=== PATIENT | male | born 1950 | race Caucasian/White ===

== ENCOUNTER 2024-02-25 08:14 | Day surgery (SDC) | payer MEDICARE, OTHER, SELFPAY ==
--- OUTSIDE RECORDS SUMMARY | 2024-02-25 08:19 | XMS_ITS | Clinical Summary ---
Author Organization [facility] [employer] [facility] Address [place], [place] [address] Care Team Providers Care Home Office Claims Examiner Name Role Phone Alec Membreno MD Primary Care Provider [phone]- [phone] Allergies No known active allergies Medications Medication Sig Dispensed Refills Start Date End Date Status multivitamin (DAILY MULTI-VITAMIN) tablet Take 1 tablet by mouth once daily. 0 01/23/2012 Active rosuvastatin (CRESTOR) 5 mg tabletIndications:Hy perlipidemia, unspecified hyperlipidemia type Take 1 Tablet (5 mg) by mouth at bedtime. 90 Tablet 3 01/04/2024 Active cycloSPORINE (Restasis) 0.05 % ophthalmic emulsion 60 vials of 0.4ml 2/day Active RESTASIS 0.05 % ophthalmic emulsion Place 0.05 Drops into both eyes 2 times daily. 12 02/12/2019 02/21/2024 Discontinued (*Med complete/Reg imen complete/Lev el of care change) Active Problems Problem Noted Date Diagnosed Date White coat syndrome without diagnosis of hyperte nsion 02/21/2024 Overview (02/21/2024): Taking blood pressure at home regularly. Ranging 100s-120s systolic normally. Hyperlipidemia 09/01/2021 Adenomatous colon polyp 07/13/2017 Overview (02/09/2023): Colonoscopy 06/2017 polyp, repeat in 5 years Colonoscopy 01/2023 TA, SSA, repeat in 5 years Right knee pain 12/31/2013 Overview (06/26/2014): Lateral knee pain with running since approximately 2010. Dec 2013: MRI negative. June 2014: Video Gait Analysis at [facility] Physical therapy. Sleep apnea 03/06/2013 Encounters Date Type Department Care Team Description 02/22/2024 9:46 AM CDT - 02/22/2024 11:59 PM CDT Hospital Encounter [facility] Medical Imaging [address] [place] [address] Geraldo Magaña MD Elevated prostate specific antigen (PSA) 02/21/2024 10:25 AM CDT Preop Visit [facility] [address] [place] [address] Geraldo Purvis MD Preoperative Exam (02/25/24) 02/21/2024 Travel 02/18/2024 Travel 02/12/2024 Telephone [facility] [address] [place] [address] Sergio Mcgregor MD Procedure 02/11/2024 4:45 PM CDT Office Visit [address] [address] Sergio Mcgregor MD Consult (Mass of right buttock referred by Dr. Membreno) 02/11/2024 Travel 02/06/2024 Travel 02/04/2024 Transcribe Orders [facility] Medical Imaging [address] [place] [id number] Geraldo Magaña MD 01/31/2024 10:15 AM CDT Ancillary Procedure [facility] [address] [place] [address] 01/31/2024 Travel 01/29/2024 Travel 01/04/2024 10:30 AM CDT Ancillary Procedure [address] [address] 01/04/2024 9:15 AM CDT Office Visit [address] [address] Alec Membreno MD Medicare ANNUAL (subsequent) Visit (73 yr old male) 01/04/2024 Travel 01/01/2024 Travel from Last 3 Months Immunizations Name Administration Dates Next Due COVID-19 vaccine (Moderna 10 0mcg/0.5mL) PF, MDV 02/18/2021,07/22/2020,06/24/2020 Pneumococcal Conj 20-valent (Prevnar 20) 022 Pneumococcal Poly,23-Valent (Pneumovax) 08/07/19 21 Td (Age >=7 Years) 07/27/2004,02/24/1995 Td, Preservative Free (age >= 7 Years) Tdap 09/06/2010 Zoster (Shingrix-RZV, recombinant) 02/28/2021, Zoster (Zostavax-ZVL, live) 10/14/2012 Zoster, Unspecified Formulation 11/17/2020 Family History Medical History Relation Name Comments Hodgkin's lymphoma Mother Other Sister meningioma Cancer-colon No Family History Cancer-prostate No Family History Heart Disease No Family History Relation Name Status Comments Mother Sister Social History Tobacco Use Types Packs/Day Years Used Date Smoking Tobacco: Never Smokeless Tobacco: Never Tobacco Cessation:Counseling Given: Yes Alcohol Use Standard Drinks/Week Comments Yes 0 (1 standard drink = 0.6 oz pur e alcohol) 3-4 drinks weekly PHQ-2 Answer Date Recorded PHQ-2 TOTAL SCORE 0 01/04/2024 Social Connections Answer Date Recorded Do you often feel lonely or isolated from those around you? 0 01/04/2024 Financial Resource Strain Answer Date R ecorded Difficulty of Paying Living Expenses 3 01/04/2024 Difficulty of Paying Living Expenses Not on file 01/04/2024 Food Insecurity Answer Date Recorded Do you worry your food will run out before you are able to buy more? 1 01/04/2024 Transportation Needs Answer Date Record ed Does lack of transportation keep you from medica l appointments? 1 01/04/2024 Does lack of transportation keep you from work, meetings or getting things that you need? 1 01/04/2024 Housing Stability Answer Date Recorded What is your housing situation today? 1 01/04/2024 Sex and Gender Information Value Date Recorded Sex Assigned at Not on file Gender Identity Not on file Sexual Orientation Not on file Travel History Travel Start Travel End [place] 01/23/2024 01/28/2024 Obstetrics History Last Filed Vital Signs Vital Sign Reading Time Taken Comments Blood Pressure 143/70 02/21/2024 10:29 AM CDT Pulse 72 02/21/2024 10:29 AM CDT Temperature 36.6 ??C (97.8 ??F) 03/11/2021 3:49 PM CS T Respiratory Rate 12 02/08/2023 11:10 AM CDT Oxygen Saturation 99% 02/21/2024 10:29 AM CDT Inhaled Oxygen Concentration - - Weight 77.2 kg (170 lb 4.8 oz) 02/21/2024 10:29 AM CDT Height 174 cm (5' 8.5) 02/21/2024 10:29 AM CDT Body Mass Index 25.51 02/21/2024 10:29 AM CDT Plan of Treatment Health Maintenance Due Date Last Done Comments COVID-19 vaccine series ( season) 2023 09/24/2023, 02/06/2023, 08/14/2022, Additional history exists Influenza for age 65+ 07/21/2024 Postpo kim from 12/23/2023 (Patient discretion) Depression screening for age 12+ 01/03/2025 01/04/2024, 01/04/2024, 01/02/2023, Additional history exists Medicare Wellness for age 65+ 01/04/2025 01/04/2024, 01/02/2023, 09/01/2021, Additional history exists BMI (ht and wt on same day) for age 18+ 02/20/2025 02/21/2024, 01/04/2024, 01/02/2023, Additional history exists Colonoscopy through age 75 02/09/202802/08, 02/08/2023, 02/08/2023, Additional history exists Lipids for age 45-75 01/03/2029 01/04/2024, 01/02/2023, 09/01/2021, Additional history exists Tetanus booster 11/02/2030 11/02/2020, 08/21, 07/27/2004, Additional history exists Tdap Completed 09/06/2010 Hepatitis C screening for age 18-79 Completed 08/06/2020 Zoster (shingles) series for age 50+ Completed 02/28/2021, 11/17/2020, 10/14/2012 Pneumococcal series for age 65+ Completed 09/01/2021, 08/06/2020 Procedures Procedure Name Priority Date/Time Associated Diagnosis Comments HEMOGLOBIN Routine 02/21/2024 11:02 AM CDT Pre-op evaluation Mass of buttock MR PELVIS WWO Routine 01/31/2024 11:25 AM CDT Mass of buttock US PELVIS SOFT TISSUE Routine 01/04/2024 10:47 AM CDT Mass of buttock BASIC METABOLIC PANEL Routine 01/04/2024 10:43 AM CDT Elevated blood pressure reading without diagnosis of hypertension PSA TOTAL SCREEN Routine 01/04/2024 10:4 3 AM CDT Screening for prostate cancer LIPID PANEL Routine 01/04/2024 10:43 AM CDT Hyperlipidemia, unspecified hyperlipidemia type COLONOSCOPY SCREENING Routine 02/08/2023 9:52 AM CDT History of colon polyps ANTI HCV Routine 08/06/2020 8:50 AM CDT Need for hepatitis C screening test from Last 3 Months or Most Recently Relevant to Health Maintenance Results * (ABNORMAL) HEMOGLOBIN (02/21/2024 11:02 AM CDT) HEMOGLOBIN 17.6(H) 13.2 - 17.1 g/dL [facility] Blood BLOOD SPECIMEN / Unknown 02/21/2024 11:02 AM CDT 02/21/2024 11:03 AM CDT Geraldo Purvis MD HEMATOL OGY [facility] [address] [place] [address], [facility] [address] [place] [address] * MR PELVIS WWO (01/31/2024 11:25 AM CDT) Anatomical Region Laterality Modality Pelvis Magnetic Resonan ce 02/05/2024 10:0 9 AM CDT Impressions 02/05/2024 10:09 AM CDT 1. Nonspecific subcutaneous mass in the right gluteal region consistent with a soft tissue neoplasm. Findings consistent with a nonaggressive mass given the longstanding history. 2. 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 Dictated by Vik Oreilly MD @ 02/05/2024 10:09:09 AM (Electronically Signed) Narrative 02/05/2024 10:09 AM CDT For Patients: ??As a result of the Cures Act, medical imaging exams and procedure reports are released immediately into your electronic medical record. ??You may view this report before your referring provider. ??If you have questions, please contact your health care provider. EXAM: MRI OF THE PELVIS, WITHOUT WITH IV CONTRAST CLINICAL INDICATION: Longstanding right buttock mass. COMPARISON PLAIN FILMS: None. COMPARISON CROSS-SECTIONAL IMAGING STUDIES: 01/04/2024 ultrasound. TECHNICAL: Axial, sagittal and coronal T1 and STIR images of the pelvis centered in the right hip precontrast. Postcontrast T1 weighted imaging with fat saturation. Contrast: Clariscan, 14 mL IV. FINDINGS: OSSEOUS STRUCTURES: No fracture, bone marrow contusion, stress change or marrow replacement process. ??No periosteal edema/reaction. SOFT TISSUES: Ovoid mass in the superficial subcutaneous tissues of the right gluteal region posteriorly and laterally measures 5.0 x 4.9 x 3.5 cm in size. No abutment of the adjacent gluteus ramirez muscle fascia. The mass demonstrates heterogeneous increased and intermediate T2 signal with intermediate and decreased T1 signal. Small amount of peripheral enhancement. Findings consistent with a soft tissue neoplasm. Differential considerations include a fibrous or myxoid neoplasm. Given the longstanding history, a more worrisome neoplasm including sarcoma is considered unlikely. MYOTENDINOUS STRUCTURES: Elliptical mass in the proximal sartorius muscle at the level of the femoral head measures 2.8 x 1.5 x 1.2 cm in size. The mass demonstrates increased T2 signal, decreased T1 signal with diffuse internal enhancement. There are small fatty tails at the proximal and distal margin of the lesion. The overall imaging characteristics are consistent with a benign peripheral nerve sheath tumor. Myotendinous junctions are maintained. ??No tendon tear. JOINTS: No hip joint effusion or subchondral changes. No labral tear or paralabral cyst. Procedure Note Vik Oreilly MD - 02/05/2024 For Patients: As a result of the Cures Act, medical imagingexams and procedure reports are released immediately into your electronicmedical record. You may view this report before your referring provider.If you have questions, please contact your health care provider. EXAM: MRI OF THE PELVIS, WITHOUT WITH IV CONTRAST CLINICAL INDICATION: Longstanding right buttock mass. COMPARISON PLAIN FILMS: None. COMPARISON CROSS-SECTIONAL IMAGING STUDIES: 01/04/2024 ultrasound. TECHNICAL: Axial, sagittal and coronal T1 and STIR images of the pelvis centered inthe right hip precontrast. Postcontrast T1 weighted imaging with fatsaturation. Contrast: Clariscan, 14 mL IV. FINDINGS: OSSEOUS STRUCTURES: No fracture, bone marrow contusion, stress change or marrow replacementprocess. No periosteal edema/reaction. SOFT TISSUES: Ovoid mass in the superficial subcutaneous tissues of the right glutealregion posteriorly and laterally measures 5.0 x 4.9 x 3.5 cm in size. Noabutment of the adjacent gluteus ramirez muscle fascia. The massdemonstrates heterogeneous increased and intermediate T2 signal withintermediate and decreased T1 signal. Small amount of peripheralenhancement. Findings consistent with a soft tissue neoplasm. Differentialconsiderations include a fibrous or myxoid neoplasm. Given thelongstanding history, a more worrisome neoplasm including sarcoma isconsidered unlikely. MYOTENDINOUS STRUCTURES: Elliptical mass in the proximal sartorius muscle at the level of thefemoral head measures 2.8 x 1.5 x 1.2 cm in size. The mass demonstratesincreased T2 signal, decreased T1 signal with diffuse internalenhancement. There are small fatty tails at the proximal and distal marginof the lesion. The overall imaging characteristics are consistent with abenign peripheral nerve sheath tumor. Myotendinous junctions aremaintained. No tendon tear. JOINTS: No hip joint effusion or subchondral changes. No labral tear or paralabralcyst. IMPRESSION: 1. Nonspecific subcutaneous mass in the right gluteal region consistentwith a soft tissue neoplasm. Findings consistent with a nonaggressive massgiven the longstanding history. 2. 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 Dictated by Vik Oreilly MD @ 02/05/2024 10:09:09 AM (Electronically Signed) Alec Membreno MD MR * US PELVIS SOFT TISSUE (01/04/2024 10:47 AM CDT) Anatomical Region Laterality Modality Pelvis Ultrasound 01/04/2024 3:01 PM CDT Narrative 01/04/2024 3:01 PM CDT For Patients: ??As a result of the Cures Act, medical imaging exams and procedure reports are released immediately into your electronic medical record. ??You may view this report before your referring provider. ??If you have questions, please contact your health care provider. Indication: Buttock mass Technique: Grayscale and color Doppler ultrasound of the right buttock subcutaneous tissues performed in the area of concern. Comparison: None Findings: There is a circumscribed heterogeneous solid mass measuring 5.1 x 5.3 x 2.9 cm. No excess internal vascularity. No drainable fluid collection. Impression: Indeterminate solid heterogeneous mass within the right buttock soft tissues measuring 5.1 x 5.3 x 2.9 cm. MRI recommended for further evaluation. Dictated by Quang Hollingsworth MD @ 01/04/2024 3:01:01 PM (Electronically Signed) Procedure Note Quang Hollingsworth MD - 01/04/2024 For Patients: As a result of the Cures Act, medical imagingexams and procedure reports are released immediately into your electronicmedical record. You may view this report before your referring provider.If you have questions, please contact your health care provider. Indication: Buttock mass Technique: Grayscale and color Doppler ultrasound of the right buttock subcutaneoustissues performed in the area of concern. Comparison: None Findings: There is a circumscribed heterogeneous solid mass measuring 5.1 x 5.3 x2.9 cm. No excess internal vascularity. No drainable fluid collection. Impression: Indeterminate solid heterogeneous mass within the right buttock softtissues measuring 5.1 x 5.3 x 2.9 cm. MRI recommended for furtherevaluation. Dictated by Quang Hollingsworth MD @ 01/04/2024 3:01:01 PM (Electronically Signed) Alec Membreno MD US * LIPID PANEL (01/04/2024 10:43 AM CDT) CHOLESTEROL,TOTAL 143 100 - 199 mg/dL 01/04/2024 6:16 PM CDT [facility] Comment: Cholesterol, Total Reference Ranges Desirable <200 mg/dL Borderline 200-239 mg/dL High >=240 mg/dL TRIGLYCERIDES 57 <150 mg/dL 01/04/2024 6:16 PM CDT [facility] HDL CHOLESTEROL 56 >40 mg/dL 6:16 PM CDT [facility] NON-HDL CHOLESTEROL 87 <145 mg/dl 01/04/2024 6:16 PM CDT [facility] CHOL/HDL RATIO 2.55 <4.50 01/04/2024 6:16 PM CDT [facility] LDL CHOLESTEROL 76 <=130 mg/dL 01/04/2024 6:16 PM CDT [facility] VLDL CHOLESTEROL 11 <=30 mg/dL 01/04/2024 6:16 PM CDT [facility] PROVIDER ORDERED STATUS RANDOM 01/04/2024 6:16 PM CDT [facility] Blood BLOOD SPECIMEN / Unknown Venipuncture / Unknown 01/04/2024 10:43 AM CDT 01/04/2024 10:44 AM CDT Alec Membreno MD [facility] [address] [place] [address], [place] * (ABNORMAL) BASIC METABOLIC PANEL (01/04/2024 10:43 AM CDT) SODIUM 138 136 - 145 mmol/L 01/04/2024 6:16 PM T [facility] POTASSIUM 4.2 3.5 - 5.1 mmol/L 01/04/2024 6:16 PM CDT [facility] CHLORIDE 103 98 - 107 mmol/L 01/04/2024 6:16 PM T [facility] CO2,TOTAL 26 22 - 29 mmol/L 01/04/2024 6:16 PM T [facility] ANION GAP 9 5 - 18 01/04/2024 6:16 PM T [facility] GLUCOSE 93 70 - 99 mg/dL 01/04/2024 6:16 PM T [facility] CALCIUM 9.1 8.8 - 10.2 mg/dL 01/04/2024 6:16 PM T [facility] BUN 20 8 - 23 mg/dL 01/04/2024 6:16 PM T [facility] CREATININE 1.19 0.70 - 1.20 mg/dL 01/04/2024 6:16 PM T [facility] BUN/CREAT RATIO 17 10 - 20 6:16 PM T [facility] eGFR 65(L) >90 mL/min/1.7 3m2 01/04/2024 6:16 PM T [facility] Comment:As of 2021, eG FR is calculated by the CKD-EPI creatinine equation without race adjustment. ??eGFR can be influenced by muscle mass, exercise, and diet. ??The reported eGFR is an estimation only and is only applicable if the renal function is stable. Blood BLOOD SPECIMEN / Unknown Venipuncture / Unknown 01/04/2024 10:43 AM CDT 01/04/2024 10:44 AM CDT Alec Membreno MD CHEMISTRY [facility] [address] [place] [address], [place] * (ABNORMAL) PSA TOTAL SCREEN (01/04/2024 10:43 AM CDT) PSA TOTAL (SCREEN) 4.48(H) <4.00 ng/mL 01/04/2024 6:16 PM CDT [facility] Blood BLOOD SPECIMEN / Unknown Venipuncture / Unknown 01/04/2024 10:43 AM CDT 01/04/2024 10:44 AM CDT Narrative [facility] - 01/04/2024 6:16 PM CDT The test method changed on 10/17/2022. If this test has been used for serial monitoring, rebaselining is recommended. Rebaselining consists of 2 measurements, collected 3-6 weeks apart. The Carmela Elecsys total PSA assay is an electrochemiluminescence immunoassay ECLIA performed on the Carmela Leander e immunoassay analyzers. Values obtained with different assay methods may be different and cannot be used interchangeably. Alec Membreno MD LABORATORY [facility] [address] [place] [address], [place] * COLONOSCOPY (02/08/2023 9:53 AM CDT) 02/08/2023 9:53 AM CDT Narrative Transcriptions Charli Jaime MD - 02/08/2023 10:58 AM CDT Patient Name: Don Gagnon Procedure Date: 02/08/2023 Gender: Male Date of : 1950 Admit Type: Outpatient Procedure: Colonoscopy Proceduralist: Charli Jaime MD , Holly Hunt (Nurse), Joann López (Nurse) Referring MD: Alec Membreno Indications/Pre-Op Diagnosis: High risk colon cancer surveillance:Personal history of sessile serrated colon polyp(less than 10 mm in size) with no dysplasia, Last colonoscopy: June 2017 Medications: Fentanyl 100 micrograms IV, Midazolam 4 mgIV, The level of sedation administered wasmoderate Procedure Description: The patient had risks, benefits and alternatives explained to andgave informed consent. The patient had a stable cardiopulmonary status and judged an adequate candidate for conscious sedation. The PCF-H190L [id number] was passed through the anus and advanced to the cecum, identified by appendiceal orifice and ileocecal valve. The colonoscopy was performed without difficulty. The patient toleratedthe procedure well. The quality of the bowel preparation was good. The ileocecal valve, appendiceal orifice, and rectum were photographed. Complications: No immediate complications. Estimated Blood Loss & Specimen: Estimated blood loss: none. Specimen collected - Yes and sent to Laboratory Findings: The perianal and digital rectal examinations were normal. Three sessile polyps were found in the ascending colon. The polypswere 3 mm in size. These polyps were removed with a cold biopsy forceps. Resection and retrieval were complete. The exam was otherwise without abnormality. Impressions/Post-Op Diagnosis: - Three 3 mm polyps in the ascending colon, removed with a coldbiopsy forceps. Resected and retrieved. - The examination was otherwise normal. Recommendation: - Patient has a contact number available for emergencies. The signsand symptoms of potential delayed complications were discussed with the patient. Return to normal activities tomorrow. Written discharge instructions were provided to the patient. - Resume previous diet. - Continue present medications. - Await pathology results. - Repeat colonoscopy is recommended. The colonoscopy date will be determined after pathology results from today's exam become available for review. Moderate Sedation: A time out was performed before the procedure. Moderate (conscious) sedation was administered by the endoscopy nurse and supervised bythe endoscopist. The following parameters were monitored: oxygensaturation, heart rate, blood pressure, EKG, CO2, respiratory rate, adequacy of pulmonary ventilation and reponse to care. Please refer to the patient's medical record flowsheets and nursing notes for moderate sedation details. Total physician intraservice time was 17 minutes. Charli Jaime MD 02/08/2023 10:58:14 AM This report has been signed electronically. Note Initiated On: 02/08/2023 9:53 AM Procedure Code(s): --- Professional --- 58299, Colonoscopy, flexible; with biopsy, single or multiple Diagnosis Code(s): --- Professional --- Z86.010, Personal history of colonicpolyps D12.2, Benign neoplasm of ascending colon CPT copyright 2021 [employer]. All rights reserved. The codes documented in this report are preliminary and upon burrer hand reviewmay be revised to meet current compliance requirements. Scope In: 10:35:12 AM Scope Withdrawal Time 0 hours 12 minutes 5 seconds Scope Out: 10:50:34 AM Charli Jaime MD PROCEDURE ORD * ANTI HCV (08/06/2020 8:50 AM CDT) HEPATITIS C ANTIBODY Non-React tatiana Non-React tatiana 08/06/2020 3:51 PM CDT [facility] Comment:Antibodies to HCV no t detected; does not exclude the possibility of exposure to HCV. Blood BLOOD SPECIMEN / Unknown Venipuncture / Unknown 08/06/2020 8:50 AM CDT 08/06/2020 8:52 AM CDT Alec Membreno MD SEND OUTS [facility] 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
[2024-02-25 08:28] VITALS: BP 130/66; PULSE 54; RESP 16; TEMP 36.6; O2SAT 100; BMI 25.9
[2024-02-25] MEDS: SODIUM CHLORIDE 0.9 % (FLUSH) 10 ML SYRINGE IVF (08:28)
--- NOTE | 2024-02-25 09:27 | PM.GSPRC ---
Operative Note Date of procedure: 02/25/24 Pre-op diagnosis: 1. Enlarging Right buttocks mass. Post-op diagnosis: Same Type of Procedure: 1. Excision of right buttocks mass with complex incisional closure. Indications: 73-year-old male was seen in clinic for evaluation of a right buttocks mass that was initially noticed 40 years ago. The mass has been increasing in size. Patient noticed pain in the mass that was worse after prolonged driving or sitting. The pain was radiating to the posterior thigh. Patient had lower extremity and pelvic MRI that showed 5 x 4.9 cm posterior and lateral Right buttocks mass that was above the muscle fascia. This was well circumscribed but mixed echogenicity. on clinical exam in the right lateral buttocks patient had a well-circumscribed mobile larger than a golf ball sized mass that was firmly attached to the dermis in the center of the mass. Given clinical picture and patient's physical exam, excision of this mass in the operating room was recommended. Procedure was discussed in detail. The risks associated procedure including infection, bleeding, mass recurrence, and seroma were all discussed with the patient, and he agreed to proceed. Procedure Description: After discussing the risks and benefits of the procedure, the patient signed informed consent.? The operative site was marked and the patient was brought to the operating room and placed on the operating table in the lateral decubitus position.? Care was taken to pad the patient's pressure points.?? The patient was then sedated by anesthesia.?? The operative site was then prepped and draped in the usual sterile fashion.? A time-out was then performed. Local anesthetic was injected at the surgical site. An elliptical skin incision was marked with the marking pen. A slightly oblique elliptical skin incision was made with a scalpel excising portion of the skin that was attached to the mass. Dermis and subcutaneous fat were divided with cautery until the mass was mobilized off muscle fascia. With there was 1 area in the superior third of the incision where the mass had slightly darkened fat an was attached to the muscle fascia firmer than any other location. This area was marked with a PDS stitch. The mass was then excised and marked with a single stitch superior and double lateral. The ellipse of skin was measuring 11 x 3 cm but the mass itself measured 5.5 x 5 cm. Hemostasis was achieved with cautery. The mass was sent to pathology. Lateral and medial skin flaps were developed with cautery to achieve tension-free closure. The incision was then closed in layers with interrupted 2-0 in 3-0 Vicryl sutures. The skin was closed with a running 4-0 Monocryl stitch. The length of the incision was 13 cm. Steri-Strips and sterile pressure dressing were placed over the incision. All counts were correct at the end of the case. ? The patient was then woken and transported to the recovery area in stable condition. ? The patient tolerated the procedure well. Findings: Firm to palpation most circumscribed mass attached to the skin dermis in the center. Anesthesia: MAC and local Surgeon: Sergio Mcgregor MD Estimated blood loss (mL): 5 Additional Specimen Information: 1. Right buttocks mass. Condition: stable Disposition: same day
[2024-02-25] MEDS: CEFAZOLIN 2 GM INJ IVP (10:48)
[2024-02-25] MEDS: LIDOCAINE 1%-EPI 1:100,000 20 ML INFILTRATI (10:50)
[2024-02-25] MEDS: BUPIVACAINE 0.25% 30 ML INJECTION (10:50)
[2024-02-25 11:20] VITALS: BP 109/56; PULSE 46; RESP 16; TEMP 36.9; O2SAT 97
--- NOTE | 2024-02-25 11:23 | W.ANESCHARGE ---
Anesthesia Charges Start Date/Time Anesthesia Start Date: 02/25/24 Anesthesia Start Time: 10:17 Stop Date/Time Anesthesia Stop Date: 02/25/24 Anesthesia Stop Time: 11:20 Summary Extremes of Age - Over 70 or under 1: MDA
--- NOTE | 2024-02-25 11:28 | W.ANESCHARGE ---
Anesthesia Charges Start Date/Time Anesthesia Start Date: 02/25/24 Anesthesia Start Time: 10:17 Stop Date/Time Anesthesia Stop Date: 02/25/24 Anesthesia Stop Time: 11:20 Summary Extremes of Age - Over 70 or under 1: [employer]
[2024-02-25 11:30] VITALS: BP 123/53; PULSE 48; RESP 16; O2SAT 100
[2024-02-25 11:45] VITALS: BP 111/53; PULSE 46; RESP 16; O2SAT 100
== END 2024-02-25 11:55 | disposition home or self-care (01) ==
PROVIDERS: PCP Surgery; Visit Provider Surgery
PROC: (CPT 11406; principal; 2024-02-25 09:30)
DX: R22.2 Localized swelling, mass and lump, trunk (principal); L72.0 Epidermal cyst
CPT/HCPCS: 11406; 13101; 13102; 00300; 88304; 99100; J0665; J0690; J1100; J2405; J2704; J3010; J3490